=== PATIENT | female | born 1980 | race Caucasian/White ===

== ENCOUNTER 2019-12-03 14:42 | Observation (INO) | payer OTHER, SELFPAY ==
[2019-12-03] VITALS (10 sets, daily range): BP systolic 113–146; BP diastolic 70–101; PULSE 70–109; RESP 17–20; TEMP 36.5–37.1; O2SAT 99–100; BMI 28.4
--- NOTE | ~2019-12-03 | XR_ITS ---
EXAMINATION: XR chest 2V 12/03/2019 15:58 INDICATION: Shortness of breath PROCEDURE: 2 view chest COMPARISON: None FINDINGS: The lungs are clear. The cardiomediastinal silhouette is within normal limits. There are no pleural effusions. There is no pneumothorax suspected. IMPRESSION: 1: NO ACUTE CARDIOPULMONARY DISEASE. Reviewed, dictated and finalized at location A.
--- NOTE | 2019-12-03 15:02 | ECG_ITS ---
Measurements Intervals Lane Rate: 100 P: 70 MI: 160 QRS: 39 QRSD: 85 T: 79 QT: 330 QTc: 426 Interpretive Statements SINUS TACHYCARDIA BORDERLINE ST ABNORMALITY- DIFFUSE LEADS BASELINE WANDER- V2-V3 BORDERLINE ECG Electronically Signed On 12-03-2019 15:09:07 CDT by Jace Jones D.O.
[2019-12-03] MEDS: ASPIRIN 81 MG CHEWABLE TABLET 324 MG PO (15:09)
[2019-12-03 15:17] LABS: Basophils Percent Auto 0.6 % (0.2-1.2); Eosinophils Percent Auto 0.6 % (0-4.4); Hematocrit 36.9 % (37.0-47.0); Hemoglobin 12.4 g/dL (12.0-15.0); Immature Granulocyte Absolute 0.01 K/mm3 (0.00-0.031); Immature Granulocyte Percent A 0.2 % (0-0.5); Lymphocytes Absolute Auto 1.54 K/mm3 (0.9-3.2); Lymphocytes Percent Auto 28.7 % (18.3-44.2); Mean Corpuscular HGB Conc 33.6 g/dl (32-36); Mean Corpuscular Hemoglobin 28.7 pg (26-34); Mean Corpuscular Volume 85.4 fl (80-100); Mean Platelet Volume 9.6 fl (7.4-10.4); Monocytes Absolute Auto 0.5 K/mm3 (0.1-0.6); Monocytes Percent Auto 8.4 % (2.6-8.5); Neutrophils Absolute Auto 3.3 K/mm3 (1.3-6.7); Neutrophils Percent Auto 61.5 % (45.5-73.1); Platelet Count Result 361 k/mm3 (150-375); Red Blood Count 4.32 M/mm3 (4.2-5.4); Red Cell Distribution Width 15.4 % (11.5-14.5); White Blood Count 5.4 K/mm3 (4.5-10.0)
[2019-12-03 15:27] LABS: INR 0.9
[2019-12-03 15:28] LABS: Partial Thromboplastin Time 29.4 SECONDS (22.3-36.8)
[2019-12-03 15:29] LABS: Blood Urea Nitrogen 9 mg/dL (7-17); Calcium 9.4 mg/dL (8.4-10.2); Carbon Dioxide 23 mmol/L (22-30); Chloride 104 mmol/L (98-107); Estimated CRCL calculation 116 ml/min; Estimated Glomerular Filt Rate > 60; Glucose 109 mg/dL (65-105); Potassium 3.6 mmol/L (3.4-5.0); Sodium 134 mmol/L (137-145)
[2019-12-03 15:46] LABS: Troponin I 0.089 ng/mL (0.000-0.034)
[2019-12-03 15:54] LABS: D Dimer 0.27 ug/mL (<0.48)
[2019-12-03 16:02] LABS: Add Urine Microscopic? NO; Appearance Urine Clear (Clear); Bilirubin Urine Negative (Negative); Blood Urine Negative (Negative); Color Urine Yellow (Yellow); Glucose Urine UA Negative (Negative); Ketones Urine Negative (Negative); Leukocyte Esterase Ur Negative LEU/UL (Negative); Nitrate Urine Negative (Negative); Protein Urine Negative (Negative); Specific Grav Ur 1.021 (1.001-1.035); Urobilinogen Urine Negative mg/dL (<2.0)
--- NOTE | 2019-12-03 16:06 | ED.GENADULT ---
HPI - General Adult General Chief complaint: Chest Pain Stated complaint: Cough, SOB Time Seen by Provider: 12/03/19 14:48 History of Present Illness HPI narrative: Patient is a 39 y/o female complaining of sharp and burning chest pain for 2 weeks. She states that her pain is located in mid sternal area and it radiates to her neck/throat. She rates her pain as 8/10. She states that her pain is worse with movement. She has some SOB and cough. She took Ibuprofen which did not help. Related Data Home Medications Medication Instructions Recorded Confirmed No Home Medications 12/03/19 12/03/19 Allergies Allergy/AdvReac Type Severity Reaction Status Date / Time amoxicillin Allergy Hives Verified 12/03/19 14:56 Review of Systems Constitutional: Constitutional: Denies chills, Denies fever(s), Denies headache(s) and Denies weakness Eyes: Eyes: Denies blurry vision ENT: Denies headache(s) and Denies neck pain Cardiovascular: Cardiovascular: Reports chest pain and Reports dyspnea Respiratory: Respiratory: Reports cough and Reports dyspnea Gastrointestinal: Gastrointestinal: Denies abdominal pain, Denies diarrhea, Denies nausea and Denies vomiting Genitourinary: Genitourinary: Denies hematuria and Denies dysuria Musculoskeletal: Musculoskeletal: Denies back pain and Denies neck pain Neurologic: Denies headache(s) and Denies weakness [facility] Family History Family History (Updated 12/03/19 @ 18:53 by Freya Dolan RN) Mother Asthma Cerebrovascular accident Sibling Asthma Father Hypertension Prostate carcinoma Social History Social History Smoking status: Never smoker Alcohol intake: current Drinks per week: 4 Substance use: never Spiritual care concerns: No Exam Const: General: no acute distress and well developed Orientation/consciousness: oriented to person, oriented to place, oriented to time and patient oriented x3 HENMT: Head: normocephalic Ears: external ears normal General nose exam: Normal external nose present Eyes: General: appearance normal, both eyes and all related structures Conjunctivae: conjunctivae normal Neck: Neck: normal visual inspection and full ROM Chest: Chest palpation & inspection: normal inspection of the chest and no tenderness Resp: Effort & Inspection: normal respiratory effort Auscultation: clear to auscultation bilaterally Cardio: Rate: regular rate Rhythm: regular rhythm GI: GI Palp: No abdominal tenderness and Yes Soft to palpation Skin: General skin exam: normal color and turgor normal Neuro: General: oriented to person, oriented to place, oriented to time and patient oriented x3 Cognition (Neuro): normal cognition Extrem: General: normal to inspection, full ROM and no pedal edema Psych: Appearance: grossly normal Mental Status: mental status grossly normal Affect: normal affect Course Consultations Consultation #1: Discussed with Dr. Gupta (cardiology), who agrees to admit. She also recommends giving one dose of Lovenox and ordering Echo. Date: 12/03/19 Time: 17:31 Vital Signs Vital signs: Vital Signs Temperature 37.1 C 12/03/19 14:49 Pulse Rate 106 H 12/03/19 14:49 Respiratory Rate 20 12/03/19 14:49 Blood Pressure 146/101 H 12/03/19 14:49 Pulse Oximetry 100 12/03/19 14:49 Temperature 36.6 C 12/03/19 18:50 Pulse Rate 92 12/03/19 18:50 Respiratory Rate 18 12/03/19 18:50 Blood Pressure 127/78 12/03/19 18:50 Pulse Oximetry 100 12/03/19 18:50 Medical Decision Making Vital Signs Vital Signs: Vital Signs Temperature 37.1 C 12/03/19 14:49 Pulse Rate 106 H 12/03/19 14:49 Respiratory Rate 20 12/03/19 14:49 Blood Pressure 146/101 H 12/03/19 14:49 Pulse Oximetry 100 12/03/19 14:49 Temperature 36.6 C 12/03/19 18:50 Pulse Rate 92 12/03/19 18:50 Respiratory Rate 18 12/03/19 18:50 Blood Pressure 127/78
[2019-12-03 17:30] LABS: NT Pro B Type Natriuretic Pept 122 PG/ML (5-100)
[2019-12-03] MEDS: ENOXAPARIN 80 MG/0.8 ML SYRINGE SUB-Q (17:46)
[2019-12-03 18:16] LABS: Troponin I 0.104 ng/mL (0.000-0.034)
--- NOTE | 2019-12-03 18:36 | PC.NURSE ---
This patient, Temitope Childers, was admitted to IMU Room 213-01. Patient/family oriented to hospital policies and general routines including ID bracelet, bed and alarms, visiting hours, pain management, procedures, bathroom and other care routines, personal items, smoking policy, room service/diet, and visiting hours. Valuables list has been completed. Information on how to activate the Rapid Response Team has been discussed. Patient/Family are encouraged to report perceived risks to care and to ask questions if they do not understand what they are told or what they should do.
--- NOTE | 2019-12-03 19:41 | ECG_ITS ---
Measurements Intervals [place] Rate: 100 P: 59 DC: 152 QRS: 1 QRSD: 90 T: 125 QT: 343 QTc: 444 Interpretive Statements SINUS TACHYCARDIA LEFT ATRIAL ENLARGEMENT RSR' IN V1 OR V2, CONSIDER RIGHT VENTRICULAR HYPERTROPHY OR RIGHT VCD DELAYED PRECORDIAL R/S TRANSITION BORDERLINE ST-T WAVE ABNORMALITY- DIFFUSE LEADS BASELINE ARTIFACT- III, AVL BORDERLINE ECG Electronically Signed On 12-03-2019 20:17:47 CDT by Jace Jones D.O.
[2019-12-03] MEDS: NITROGLYCERIN SL 0.4 MG TABLET SUBLINGUAL ×2 (19:45→19:51)
[2019-12-03 21:36] LABS: Troponin I 0.103 ng/mL (0.000-0.034)
[2019-12-04] VITALS (13 sets, daily range): BP systolic 114–129; BP diastolic 69–91; PULSE 70–125; RESP 13–28; TEMP 36.5–36.6; O2SAT 91–100
--- NOTE | 2019-12-04 | ECHO_ITS ---
Patient Info Name: Temitope Childers Age: 39 years : 1980 Gender: Female Ht: 66 in Wt: 172 lbs BSA: 1.92 m2 HR: 79 bpm BP: 122 / 69 mmHg Heart Rhythm: Sinus Rhythm Technical Quality: Good Exam Date: 12/04/2019 8:52 AM Exam Location: [facility] Pulmonary Patient Status: Inpatient Admit Date: 12/03/2019 Staff Ordering Physician: Briana Chavez MD Clip Riveter: Lio Ibarra RDCS Attending Provider: Lee Ann Gupta DO Referring Physician: Scott KIM; Exam Type: CA echo doppler color flow Study Info Indications R07.9 - Chest pain, unspecified Complete two-dimensional, color flow and Doppler transthoracic echocardiogram is performed. Strain analysis performed. History/Risk Factors Chest pain and SOB w/ cough x2 weeks; trop bump. Summary 1. Normal LV size, mild LVH; normal LV systolic and diastolic function, LVEF 60-65%. Global longitudinal strain -19%. Normal structure of the valves. Trace TR, RVSP 26 mmHg. Increased echogenicity of the pericardium with no significant pericardial effusion. Left Ventricle Left ventricular chamber dimension is normal. Left ventricular systolic function is normal, estimated at 60-65%. There is mildly increased left ventricular wall thickness. Left ventricular septal wall motion is normal. The left ventricular diastolic function is normal. Right Ventricle Right ventricular chamber dimension is normal. Right ventricular systolic function is normal. Left Atria Left atrial chamber dimension is normal. Right Atria Right atrial chamber dimension is normal. Aortic Valve The aortic valve is trileaflet. There is no aortic valve sclerosis. There is no aortic valve stenosis. There is no aortic valve regurgitation. Pulmonic Valve The pulmonic valve is normal. There is trace pulmonic regurgitation. Mitral Valve The mitral valve has normal leaflets. There is no mitral valve stenosis. There is no mitral valve regurgitation. Tricuspid Valve The tricuspid valve leaflets are normal. There is no significant tricuspid valve stenosis. There is trace tricuspid valve regurgitation. No pulmonary hypertension, estimated pulmonary arterial systolic pressure is 26 mmHg. Pericardium/Pleural The pericardium appears increased echogenicity of the pericardium. There is trivial pericardial effusion. Inferior Vena Cava Normal inferior vena cava with >50% collapse upon inspiration consistent with normal right atrial pressure, 5 mmHg. Aorta The aortic root size at the sinus of Valsalva is normal. The prox ascending aorta size is normal. Left Ventricular Outflow Tract Name Value Normal LVOT 2D LVOT Diameter 1.8 cm LVOT Doppler LVOT Peak Gradient 5 mmHg LVOT Mean Gradient 3 mmHg LVOT VTI 22 cm LVOT VTI/AV VTI Ratio 0.9 LVOT Stroke Volume 53 ml LVOT CO 4.0 l/min LVOT CI 2.1 l/min/m2 Mitral Valve
[2019-12-04] MEDS: NITROGLYCERIN OINTMENT 1 INCH DOSE 0.5 INCH TRANSDERM ×2 (00:09→05:26)
[2019-12-04] MEDS: ACETAMINOPHEN 325 MG TABLET 650 MG PO ×2 (04:29→16:17)
--- NOTE | 2019-12-04 08:17 | PM.IMHP ---
H&P: HPI History of Present Illness Chief complaint: chest pain/elevated troponin Narrative: Date of service-12/04/2019 Chief complaint: Chest pain, cough for approximately 2 weeks HPI: Temitope Childers is a 39 year old female with no known prior cardiac history; no previous medical/surgical problems. Patient presented to [facility] on 12/03/2019 with complaints of chest discomfort and cough for approximately 2 weeks. She describes her chest discomfort as sharp/burning sensation in the substernal area, localized and worse with movement. Symptoms have been somewhat persistent were last couple of weeks, associated with cough with scanty expectoration. She also has mild shortness of breath, occasional dizziness without syncope. No palpitations. No PND, orthopnea or lower extremity swelling. Patient does not recall any recent sick contacts. She denies fever or chills. Patient's EKG on admission which I personally evaluated showed sinus tachycardia, heart rate 100 beats per minute, diffuse subtle ST depression. Troponins are minimally elevated with current peak troponin level of 0.103; NT proBNP is in the [place] zone at 1:22 a.m.. UA is unremarkable. Chest x-ray is unremarkable. Review of Systems Constitutional: Constitutional: Denies chills, Denies fatigue, Denies fever(s) and Denies headache(s) Eyes: Eyes: Reports as per HPI, Denies change in vision, Denies loss of vision and Denies eye pain ENT: Reports as per HPI, Reports Normal hearing present, Denies headache(s), Denies lip swelling, Denies epistaxis and Denies sore throat Cardiovascular: Cardiovascular: Reports as per HPI, Reports chest pain, Denies syncope, Denies irregular heart rhythm, Reports lightheadedness and Reports dyspnea Respiratory: Respiratory: Reports as per HPI, Reports cough, Reports dyspnea and Denies wheezing Gastrointestinal: Gastrointestinal: Reports as per HPI, Denies abdominal pain, Denies melena, Denies nausea and Denies vomiting Genitourinary: Genitourinary: Reports as per HPI Musculoskeletal: Musculoskeletal: Reports as per HPI, Denies myalgias, Denies muscle cramps and Denies muscle weakness Integumentary/Breasts: Skin/Breast: Reports as per HPI, Denies pruritus and Denies rash Neurologic: Reports as per HPI, Reports Normal hearing present, Denies behavioral changes, Denies syncope, Denies headache(s) and Denies loss of vision Psychiatric: Psychiatric: Reports as per HPI, Denies anxiety, Denies behavioral changes and Denies depression Endocrine: Endocrine: Reports as per HPI, Denies fatigue, Denies polydipsia and Denies polyuria Hematologic/Lymphatic: Hematologic/Lymphatic: Reports as per HPI, Denies easy bleeding and Denies easy bruising Allergic/Immunologic: Allergic/Immunologic: Reports as per HPI, Denies lip swelling and Denies wheezing [facility] Family History Family History Mother Asthma Cerebrovascular accident Sibling Asthma Father Hypertension Prostate carcinoma Social History Social History Smoking status: Never smoker Alcohol intake: current Drinks per week: 4 Substance use: never Spiritual care concerns: No Meds Home Medications and Allergies Home Medications Medication Instructions Recorded Confirmed Type No Home Medications 12/03/19 12/03/19 History Allergies Allergy/AdvReac Type Severity Reaction Status Date / Time amoxicillin Allergy Hives Verified 12/03/19 14:56 Vital Signs Vital Signs - 24 hr 12/03/19 14:49 12/03/19 15:57 12/03/19 18:48 Temperature 37.1 C Pulse Rate 106 H 98 78 Respiratory Rate 20 17 18 Blood Pressure 146/101 H 133/96 H 134/70 Pulse Oximetry 100 99 99 12/03/19 18:50 12/03/19 19:43 12/03/19 19:51 Temperature 36.6 C 36.6 C Pulse Rate 92 97 Respiratory Rate 18 20 Blood Pressure 127/78 128/77 129/80 Pulse Oximetry 100 100 12/03/19 20:00 12/03/19 21
[2019-12-04 09:10] LABS: D Dimer 0.32 ug/mL (<0.48)
--- NOTE | 2019-12-04 09:30 | PC.NURSE ---
This patient, Temitope Childers, was transferred to ICU 1 to rule out covid on 12/04/19 at 0930. Personal belongings sent with patient. Report given to MANJIT Garcia. Appropriate documentation sent with patient.
[2019-12-04] MEDS: ASPIRIN 81 MG CHEWABLE TABLET PO (09:46)
[2019-12-04] MEDS: ONDANSETRON INJ 4 MG/2 ML VIAL IV PUSH (13:15)
[2019-12-04] MEDS: COLCHICINE 0.6 MG TABLET PO ×2 (16:17→21:25)
[2019-12-04 19:17] LABS: SARS-CoV-2 RNA PCR Negative
--- NOTE | 2019-12-04 23:49 | PC.NURSE ---
This patient, Temitope Childers, was received from [ICU-1 ] on 12/04/19 at 2349. Personal belongings list checked and signed. Patient/family oriented to unit policies and routines
[2019-12-05] VITALS (8 sets, daily range): BP systolic 121–123; BP diastolic 69–76; PULSE 50–115; RESP 16–18; TEMP 36.3–36.6; O2SAT 98–100
--- NOTE | 2019-12-05 00:53 | PC.NURSE ---
This patient, Temitope Childers, was transferred to [[id number] ] on 12/04/19 at 2349 via wheelchair. Personal belongings sent with patient. Belongings list checked and signed with receiving [RN]. Report given to [Meghan SARAVIA ]. Appropriate documentation sent with patient.
[2019-12-05] MEDS: ASPIRIN 81 MG CHEWABLE TABLET PO (09:43)
[2019-12-05] MEDS: COLCHICINE 0.6 MG TABLET PO (09:43)
--- NOTE | 2019-12-05 10:15 | PM.DS ---
DS: Admitting Diagnosis Admitting Diagnosis Admitting Diagnosis: Disease of pericardium, unspecified DS: Discharge Diagnosis Discharge Diagnosis (1) Myopericarditis: Code(s): I31.9 - Disease of pericardium, unspecified Status: Acute Assessment and Plan: 39-year-old female with no known prior medical/surgical history presented with 2 week history of chest pain associated with cough and shortness of breath. Her EKG showed sinus tachycardia, subtle diffuse ST depression. Troponins were minimally elevated. Clinical presentation suggestive of possible myopericarditis. COVID was ruled out D-dimer was negative Echocardiogram as per hospital course Improved with colchicine. Telemetry reveals heart rates in the 65 range at rest increasing up to 122 with exertional activity back and forth to the bathroom. DS: Summary Hospital Course Reason for hospitalization: Chest pain Hospital Course: 39-year-old female presented to the emergency room on 12/03/2019 for evaluation of substernal chest discomfort and cough that she has had for 2 weeks. The chest discomfort was sharp/burning sensation, localized and worse with movement. She had an associated cough and mild shortness of breath. No palpitations. EKG on admission showed sinus tachycardia heart rate [address] depression. Troponin was mildly elevated with a peak of 0.014. Chest x-ray was unremarkable. UA was negative. Echocardiogram 12/04/2019:Normal LV size, mild LVH; normal LV systolic and diastolic function, LVEF 60-65%. Global longitudinal strain -19%. Normal structure of the valves. Trace TR, RVSP 26 mmHg. Increased echogenicity of the pericardium with no significant pericardial effusion. COVID was ruled out. She was started on colchicine 0.6 mg every 12 hours. Symptoms have improved. She no longer has chest discomfort. She does have shortness of breath with exertional activity of moving back and forth to the bathroom but this is improved. Telemetry reveals sinus tachycardia up to 122 beats per minute with activity. Resting heart rates are in the 65 range. She was discharged home in improved condition. Status at Discharge Functional status at discharge: independent ambulation Overall status at discharge: patient is progressing back to baseline Time Spent with Patient Time attestation: Total time spent providing and/or coordinating discharge services: 28 minutes Time spent: Less than 30 minutes Exam Const: General: cooperative, no acute distress, alert and awake Nutritional Appearance: well nourished Orientation/consciousness: patient oriented x3 Limitations: no limitations HENMT: Head: normocephalic and atraumatic Ears: hearing grossly normal bilaterally and external ears normal General nose exam: Normal external nose present and no epistaxis Face and sinus: normal facial exam and no ecchymosis Mouth: Yes tongue normal and Yes moist mucous membranes Teeth and gingiva: dentition normal Eyes: Conjunctivae: conjunctivae normal Sclera: sclerae normal Pupils: Equal, round and reactive pupils present Neck: Neck: normal visual inspection, supple and no JVD Carotids: normal carotid upstroke Resp: Effort & Inspection: normal respiratory effort and able to speak in complete sentences Auscultation: clear to auscultation bilaterally Cardio: Jugular venous distension: no JVD Rate: regular rate Rhythm: regular rhythm Heart sounds: S1 normal heart sound present, S2 normal heart sound present and no murmurs GI: Inspection: normal to inspection GI Palp: Yes Soft to palpation Auscultation: normal bowel sounds Skin: General skin exam: normal color Lesions: no lesions Rashes: no rashes Other: no rash on exposed areas, no cyanosis Neuro: General: patient oriented x3 Cranial nerves: Yes Equal, round and reactive pupils present and Yes Normal hearing present Cognition (Neuro): normal co
== END 2019-12-05 14:10 | disposition home or self-care (01) ==
LOC: ANHED 17:39 → ANHIMU 19:28 → ANHICU 12-06 15:43 → ANHIMU 12-06 15:43
PROVIDERS: Internal Medicine Cardiovascular Disease; Admitting Provider Internal Medicine Cardiovascular Disease; Emergency Provider Emergency Medicine; Visit Provider Internal Medicine Cardiovascular Disease
DX: R07.9 Chest pain, unspecified (principal); Z20.828 Contact with and (suspected) exposure to other viral communicable diseases; R00.0 Tachycardia, unspecified; R79.89 Other specified abnormal findings of blood chemistry; R06.02 Shortness of breath; I31.9 Disease of pericardium, unspecified
CPT/HCPCS: 36415; 71046; 80048; 81003; 81025; 83880; 84484; 85025; 85380; 85610; 85730; 87635; 93005; 93306; 96372; 96374; 99285; A9270; C9803; G0378; G0379; J1650; J2405; U0003

== ENCOUNTER 2019-12-27 09:04 | Outpatient (NON) | payer OTHER, SELFPAY ==
[2019-12-28 02:02] LABS: SARS-CoV-2 RNA PCR Negative
== END 2019-12-27 09:05 ==
PROVIDERS: Visit Provider Internal Medicine Cardiovascular Disease
DX: R06.00 Dyspnea, unspecified (principal); Z20.828 Contact with and (suspected) exposure to other viral communicable diseases
CPT/HCPCS: 87635; C9803; U0003

== ENCOUNTER 2020-06-13 09:51 | Outpatient (CLI) | payer OTHER, SELFPAY ==
[2020-06-13 10:09] LABS: Basophils Percent Auto 0.8 % (0.2-1.2); Eosinophils Percent Auto 0.6 % (0-4.4); Immature Granulocyte Absolute 0.01 K/mm3 (0.00-0.031); Immature Granulocyte Percent A 0.2 % (0-0.5); Lymphocytes Absolute Auto 2.06 K/mm3 (0.9-3.2); Lymphocytes Percent Auto 39.4 % (18.3-44.2); Mean Corpuscular HGB Conc 32.5 g/dl (32-36); Mean Corpuscular Hemoglobin 28.3 pg (26-34); Mean Corpuscular Volume 87.1 fl (80-100); Mean Platelet Volume 9.2 fl (7.4-10.4); Monocytes Absolute Auto 0.5 K/mm3 (0.1-0.6); Monocytes Percent Auto 9.2 % (2.6-8.5); Neutrophils Absolute Auto 2.6 K/mm3 (1.3-6.7); Neutrophils Percent Auto 49.8 % (45.5-73.1); Platelet Count Result 303 k/mm3 (150-375); Red Blood Count 4.59 M/mm3 (4.2-5.4); Red Cell Distribution Width 15.6 % (11.5-14.5); White Blood Count 5.2 K/mm3 (4.5-10.0)
[2020-06-13 10:20] LABS: INR 0.9; Prothrombin Time 13.1 Seconds (11.1-14.7)
[2020-06-13 10:22] LABS: Alanine Aminotransferase 23 U/L (4-35); Albumin Level 4.5 g/dL (3.5-5.1); Alkaline Phosphatase 77 U/L (38-126); Anion Gap 7 mmol/L (8-16); Aspartate Amino Transferase 30 U/L (14-36); Bilirubin,Total 0.7 mg/dL (0.2-1.3); Blood Urea Nitrogen 12 mg/dL (7-17); Calcium 9.2 mg/dL (8.4-10.2); Carbon Dioxide 26 mmol/L (22-30); Chloride 104 mmol/L (98-107); Estimated Glomerular Filt Rate > 60; Glucose 88 mg/dL (65-105); Potassium 4.1 mmol/L (3.4-5.0); Sodium 137 mmol/L (137-145)
== END 2020-06-13 09:52 | disposition home or self-care (01) ==
PROVIDERS: Visit Provider Internal Medicine Cardiovascular Disease
DX: Z01.812 Encounter for preprocedural laboratory examination (principal); I20.8 Other forms of angina pectoris; R06.00 Dyspnea, unspecified
CPT/HCPCS: 36415; 80053; 85025; 85610

== ENCOUNTER 2020-08-13 14:48 | Inpatient (IN) | payer SELFPAY ==
[2020-08-13] VITALS (9 sets, daily range): BP systolic 111–128; BP diastolic 53–77; PULSE 64–89; RESP 16–20; TEMP 35.8–36.4; O2SAT 99–100; BMI 29.0
--- NOTE | 2020-08-13 09:17 | EST_ITS ---
Patient Info Name: Temitope Childers Age: 40 years : 1980 Gender: Female Ht: 66 in Wt: 170 lbs BSA: 1.91 m2 HR: 87 bpm BP: 140 / 86 mmHg Exam Date: 08/13/2020 9:54 AM Exam Location: [facility] Pulmonary Patient Status: Inpatient Admit Date: 08/13/2020 Staff Ordering Physician: Jace Jones DO Special Effects Makeup Artist: Breana Dugan RDCS Attending Provider: Jace Jones DO Exercise Technologist: Shyam Connelly RDCS, RT Exercise Physician: Jace Jones DO Exam Type: CA stress echo Study Info Indications R07.9 - Chest pain, unspecified Treadmill exercise stress echocardiogram is performed. Summary 1. 1. Abnormal Reinaldo exercise stress test for ischemic ST changes by ECG criteria. 2. 2. Test terminated early due to significant ST depressions and chest pains. 3. 3. Abnormal stress echocardiogram for ischemia by wall motion analysis suggesting suggesting stenosis in LAD and LCx distribution. 4. 4. Patient informed of the above results. Stress Echo Findings Left Ventricle Anterior wall is hypokinetic during systole. Lateral wall is hypokinetic during systole. Left Ventricle Normal LV systolic function, no wall motion abnormality. Protocol: Reinaldo Stress ECG Details Stage: REST Duration (min): 2 min : 41 sec Speed (mph): 0.0 Grade (%): 0 HR (bpm): 81 SBP (mmHg): 140 DBP (mmHg): 86 METS: --- Stage: REST Duration (min): 19 min : 27 sec Speed (mph): 0.0 Grade (%): 0 HR (bpm): 96 SBP (mmHg): 140 DBP (mmHg): 86 METS: --- Stage: STAGE 1 Duration (min): 1 min : 0 sec Speed (mph): 1.7 Grade (%): 10 HR (bpm): 132 SBP (mmHg): 140 DBP (mmHg): 86 METS: --- Stage: STAGE 1 Duration (min): 1 min : 20 sec Speed (mph): 1.7 Grade (%): 10 HR (bpm): 143 SBP (mmHg): 140 DBP (mmHg): 86 METS: --- Stage: RECOVERY Duration (min): 0 min : 39 sec Speed (mph): 0.0 Grade (%): 0 HR (bpm): 107 SBP (mmHg): 140 DBP (mmHg): 86 METS: --- Stage: RECOVERY Duration (min): 1 min : 39 sec Speed (mph): 0.0 Grade (%): 0 HR (bpm): 77 SBP (mmHg): 140 DBP (mmHg): 86 METS: --- Stage: RECOVERY Duration (min): 2 min : 39 sec Speed (mph): 0.0 Grade (%): 0 HR (bpm): 76 SBP (mmHg): 140 DBP (mmHg): 86 METS: --- Stage: RECOVERY Duration (min): 3 min : 39 sec Speed (mph): 0.0 Grade (%): 0 HR (bpm): 83 SBP (mmHg): 118 DBP (mmHg): 66 METS: --- Stage: RECOVERY Duration (min): 4 min : 39 sec Speed (mph): 0.0 Grade (%): 0 HR (bpm): 81 SBP (mmHg): 118 DBP (mmHg): 66 METS: --- Stage: RECOVERY Duration (min): 5 min : 39 sec Speed (mph): 0.0 Grade (%): 0 HR (bpm): 83 SBP (mmHg): 125 DBP (mmHg): 76 METS: --- Stage: RECOVERY Duration (min): 6 min : 39 sec Speed (mph): 0.0 Grade (%): 0 HR (bpm): 86 SBP (mmHg): 125 DBP (mmHg): 76 METS: ---
--- NOTE | 2020-08-13 10:51 | ECG_ITS ---
Measurements Intervals [place] Rate: 76 P: 40 [place]: 147 QRS: 1 QRSD: 90 T: 15 QT: 402 QTc: 452 Interpretive Statements SINUS RHYTHM DELAYED PRECORDIAL R/S TRANSITION BORDERLINE ST-T WAVE ABNORMALITY- INF/HIGH LAT LEADS BASELINE ARTIFACT- I, II, III, AVR, AVL, AVF, V1 BORDERLINE ECG Electronically Signed On 08-13-2020 11:56:59 CDT by Jace Jones D.O.
--- NOTE | 2020-08-13 11:46 | ADMGEN ---
This patient, Temitope Childers, was admitted to IMU Room 209-01 at 1035, direct admit from Dr. Edwards office. Patient/family oriented to hospital policies and general routines including ID bracelet, bed and alarms, visiting hours, pain management, procedures, bathroom and other care routines, personal items, smoking policy, room service/diet, and visiting hours. Information on how to activate the Rapid Response Team has been discussed. Patient/Family are encouraged to report perceived risks to care and to ask questions if they do not understand what they are told or what they should do.
--- NOTE | 2020-08-13 11:47 | PM.IMHP ---
H&P: HPI History of Present Illness Date/Time: 08/13/20 11:47 Reason for admit: Markedly abnormal stress echo. 40 yr old woman who I saw for the first time a couple of weeks ago for chest pains had her stress echo this morning that came back markedly abnormal. She has a history anxiety, and myopericarditis in November [address] Coronado. She relocated here about a year ago and does not have a PCP yet. Her chest pains resolved a few minutes into recovery as ST depressions normalized. Reports that for 3 weeks following hospitalization in November 2019 for myopericarditis and on Colchicine her symptoms resolved. However after that it returned. She is still having GOODEN walking just down hallway associated with chest discomfort. She has sob upon lying down. A year ago she can walk several blocks without any problems. Denies orthopnea, PND, edema, palpitations, dizziness. Cardiovascular Procedures Echo/MUGA:: 02/06/20 HCG echo: EF 70%. 12/04/19 Echo: EF 60-65%, trace TR/PI, increased echogenicity of pericardium, trace pericardial effusion. Electrophysiology:: 12/03/19 EKG: Sinus tachycardia at 101 bpm, LAE, RSR', delayed R/S transition, borderline ST-T wave in diffuse leads. Stress Tests:: 08/13/20 Stress echo: [address] depression in II, III, avF, V3-V6 with associated chest pain. Echo portion abnormal with anterior wall and lateral wall hypokinesis. 12/04/19 CXR: Normal. Chief Complaint: Chest pain Review of Systems Review of Systems: All systems reviewed & are unremarkable except as noted in HPI and below Constitutional: Constitutional: Reports as per HPI, Denies chills and Denies fatigue Cardiovascular: Cardiovascular: Reports as per HPI, Reports chest pain, Denies irregular heart rhythm, Denies leg edema and Reports dyspnea on exertion Respiratory: Respiratory: Reports as per HPI and Reports dyspnea on exertion Gastrointestinal: Gastrointestinal: Reports as per HPI and Denies abdominal pain Genitourinary: Genitourinary: Reports as per HPI and Denies dysuria Musculoskeletal: Musculoskeletal: Reports as per HPI Neurologic: Reports as per HPI, Denies dizziness and Denies syncope [facility] Past Medical History Medical History (Updated 08/13/20 @ 11:52 by Jace Jones DO) Angina of effort GOODEN (dyspnea on exertion) History of pericarditis Family History Family History Mother Asthma Cerebrovascular accident Sibling Asthma Father Hypertension Prostate carcinoma Social History Social History Smoking status: Never smoker Alcohol intake: current Drinks per week: 4 Substance use: never Spiritual care concerns: No Meds Home Medications and Allergies Home Medications Medication Instructions Recorded Confirmed Type nitroglycerin 0.4 mg sublingual 0.4 mg SUBLINGUAL Q5M PRN 06/19/20 07/11/20 History tablet sertraline 100 mg tablet 100 mg PO DAILY 06/19/20 07/11/20 History Allergies Allergy/AdvReac Type Severity Reaction Status Date / Time amoxicillin Allergy Hives Verified 07/11/20 14:15 Vital Signs Vital Signs - 24 hr 08/13/20 11:23 08/13/20 11:29 Temperature 97.6 F Pulse Rate 87 Respiratory Rate 16 20 Blood Pressure 122/72 Pulse Oximetry 100 Exam Const: General: cooperative, healthy appearing and comfortable Resp: Auscultation: clear to auscultation bilaterally, no crackles, no rales, no rhonchi and no wheezes Cardio: Jugular venous distension: no JVD Rate: regular rate Rhythm: regular rhythm Heart sounds: no murmurs Peripheral pulses: dorsalis pedis present GI: GI Palp: No abdominal tenderness and Yes Soft to palpation Neuro: General: oriented to person, oriented to place and oriented to time Extrem: Right lower extremity: no edema Left lower extremity: no edema Assessment and Plan Assessment and plan (1) Chest pain: Qualifiers: Chest pain type: u
[2020-08-13 11:58] LABS: Basophils Percent Auto 0.5 % (0.2-1.2); Eosinophils Absolute Auto 0.1 K/mm3 (0-0.3); Eosinophils Percent Auto 0.9 % (0-4.4); Hematocrit 37.3 % (37.0-47.0); Hemoglobin 12.6 g/dL (12.0-15.0); Immature Granulocyte Absolute 0.01 K/mm3 (0.00-0.031); Immature Granulocyte Percent A 0.2 % (0-0.5); Lymphocytes Absolute Auto 1.55 K/mm3 (0.9-3.2); Lymphocytes Percent Auto 26.8 % (18.3-44.2); Mean Corpuscular HGB Conc 33.8 g/dl (32-36); Mean Corpuscular Hemoglobin 29.4 pg (26-34); Mean Corpuscular Volume 87.1 fl (80-100); Mean Platelet Volume 9.2 fl (7.4-10.4); Monocytes Absolute Auto 0.4 K/mm3 (0.1-0.6); Monocytes Percent Auto 7.4 % (2.6-8.5); Neutrophils Absolute Auto 3.7 K/mm3 (1.3-6.7); Neutrophils Percent Auto 64.2 % (45.5-73.1); Platelet Count Result 279 k/mm3 (150-375); Red Blood Count 4.28 M/mm3 (4.2-5.4); Red Cell Distribution Width 14.2 % (11.5-14.5); White Blood Count 5.8 K/mm3 (4.5-10.0)
[2020-08-13 12:12] LABS: Alanine Aminotransferase 17 U/L (4-35); Albumin Level 4.1 g/dL (3.5-5.1); Alkaline Phosphatase 90 U/L (38-126); Anion Gap 6 mmol/L (8-16); Aspartate Amino Transferase 23 U/L (14-36); Bilirubin,Total 0.5 mg/dL (0.2-1.3); Blood Urea Nitrogen 8 mg/dL (7-17); Calcium 9.1 mg/dL (8.4-10.2); Carbon Dioxide 26 mmol/L (22-30); Chloride 106 mmol/L (98-107); Cholesterol 218 mg/dL (0-200); Estimated CRCL calculation 116 ml/min; Estimated Glomerular Filt Rate > 60; Glucose 86 mg/dL (65-105); HDL Direct 94 mg/dL; Potassium 3.7 mmol/L (3.4-5.0); Sodium 138 mmol/L (137-145); Triglycerides 135 mg/dL (<150)
[2020-08-13 12:22] LABS: LDL Cholesterol Direct 98 mg/dL
[2020-08-13] MEDS: ASPIRIN 325 MG ENTERIC TABLET PO (14:20)
[2020-08-13] MEDS: PRAVASTATIN SODIUM 10 MG TABLET PO (21:15)
[2020-08-14] VITALS (17 sets, daily range): BP systolic 110–139; BP diastolic 59–101; PULSE 59–77; RESP 12–18; TEMP 36.4–37.1; O2SAT 98–100
--- NOTE | 2020-08-14 06:59 | PC.NURSE ---
patient is off floor for clinical lab technologist, quality assurance monitor body is on standby
--- NOTE | 2020-08-14 07:07 | WPDHPUPDATE1 ---
History and Physical Update Update Date/Time: 08/14/20 07:07 History and Physical has been reviewed, including an updated exam of the patient. There are NO changes in the patient's condition. Risks, benefits, and alternatives have been discussed and questions answered. Patient agrees to proceed with procedure.
--- NOTE | 2020-08-14 07:08 | WPDMODSED ---
Moderate Sedation Note-Pt Data Patient Data Allergies Allergy/AdvReac Type Severity Reaction Status Date / Time amoxicillin Allergy Intermediate Hives Verified 08/13/20 12:01 Home Medications Medication Instructions Recorded Confirmed Type nitroglycerin 0.4 mg sublingual 0.4 mg SUBLINGUAL Q5M PRN 06/19/20 08/13/20 History tablet sertraline 100 mg tablet 100 mg PO DAILY 06/19/20 08/13/20 History Current Medications: Active Medications Nitroglycerin (Nitroglycerin Sl 0.4 Mg Tablet) 0.4 mg SUBLINGUAL Q5M PRN PRN Reason: Chest Pain Pravastatin Sodium (Pravastatin Sodium 10 Mg Tablet) 10 mg PO DAILY [facility] Last Admin: 08/13/20 21:15 Dose: 10 mg Documented by: Sertraline HCl (Sertraline Hcl 50 Mg Tablet) 100 mg PO DAILY [facility] Sedation/Anesthesia: No previous sedation/anesthesia problems (including family history). [facility] Past Medical History Medical History (Updated 08/13/20 @ 11:52 by Jace Jones DO) Angina of effort GOODEN (dyspnea on exertion) History of pericarditis Family History Family History Mother Asthma Cerebrovascular accident Sibling Asthma Father Hypertension Prostate carcinoma Social History Social History Smoking status: Never smoker Alcohol intake: current Drinks per week: 7 Substance use: never Spiritual care concerns: No Mod Sed Physical Exam Physical Exam Pre Procedural Exam: Normal: Appearance, Eyes, Ears, Nose, Neck, Throat, Airway, Lungs, Heart Size, Heart Rate, Heart Rhythm, Neuro Exam, Abdomen, Liver, Kidneys, Spleen, Breasts, Genitalia, Extremities and Skin Hours since solid foods: 8 Hours since liquid intake: 8 Internal Medicine - PN: Obj Da Vital Signs Vital Signs: Vital Signs - 24 hr 08/13/20 10:50 08/13/20 11:23 08/13/20 11:29 Temperature 36.4 C Pulse Rate 84 87 Respiratory Rate 16 20 Blood Pressure 122/72 Pulse Oximetry 100 08/13/20 14:00 08/13/20 16:00 08/13/20 18:00 Temperature 36.1 C L Pulse Rate 88 77 88 Respiratory Rate 16 Blood Pressure 128/77 Pulse Oximetry 100 08/13/20 20:00 08/13/20 22:00 08/13/20 23:33 Temperature 36.1 C L 35.8 C L Pulse Rate 89 83 64 Respiratory Rate 18 18 Blood Pressure 111/67 123/53 L Pulse Oximetry 100 99 08/14/20 00:00 08/14/20 02:00 08/14/20 04:00 Temperature 36.9 C Pulse Rate 76 72 76 Respiratory Rate 18 18 Blood Pressure 110/59 L Pulse Oximetry 99 100 08/14/20 06:00 Temperature Pulse Rate 70 Respiratory Rate Blood Pressure Pulse Oximetry Intake/Output Intake/Output: Intake & Output 08/11/20 08/12/20 08/13/20 08/14/20 23:59 23:59 23:59 23:59 Intake Total 1790 Output Total 850 300 Balance 940 -300 Meds/Results Medications: Active Medications Generic Name Dose Route Start Last Admin Trade Name Freq PRN Reason Stop Dose Admin Nitroglycerin 0.4 mg 08/13/20 11:45 Nitroglycerin Sl 0.4 Mg Tablet SUBLINGUAL Q5M PRN Chest Pain Pravastatin Sodium 10 mg 08/13/20 20:30 08/13/20 21:15 Pravastatin Sodium 10 Mg Tablet PO 10 mg DAILY [facility] Administration Sertraline HCl 100 mg 08/14/20 09:00 Sertraline Hcl 50 Mg Tablet PO DAILY [facility] Labs CBC & Chem 7: 08/13/20 11:12 08/13/20 11:12 Labs: Laboratory Results - last 24 hr 08/13/20 08/13/20 11:12 11:12 WBC 5.8 RBC 4.28 Hgb 12.6 Hct 37.3 MCV 87.1 MCH 29.4 MCHC 33.8 RDW 14.2 Plt Count 279 MPV 9.2 Immature Gran % (Auto) 0.2 Neut % (Auto) 64.2 Lymph % (Auto) 26.8 Barry % (Auto) 7.4 Eos % (Auto) 0.9 Baso % (Auto) 0.5 Lymph # (Auto) 1.55 Barry # (Auto) 0.4 Eos # (Auto) 0.1 Baso # (Auto) 0.0 Abs Immat Gran (auto) 0.01 Absolute Neuts (auto) 3.7 Absolute Nucleated RBC 0.0 Nucleated RBC % 0.0 Sodium 138 Potassium 3.7 Chloride 106 Carbon Dioxide
--- NOTE | 2020-08-14 07:08 | P.PCNCC_ITS ---
Cardiac Cath Procedure Note Date of procedure:: 08/14/20 Performing physician:: Faustino Mcpherson MD date of service 08/14/2020- Indication:: abnormal stress test Brief clinical history:: this is a 40-year-old female with past medical history of myopericarditis November 2019. apparently she was experiencing intermittent chest pain underwent stress test that shows ST depressions and wall motion abnormalities involving and the left circumflex artery territory. She is here to define coronary artery. Procedure Procedure performed:: 1-Moderate sedation that started at 7:20 am and ended at 755 am using4 mg of Versed and 75mcg fentanyl. The registered nurse was demetrice cespedes. 2-Selective left and right coronary angiogram. 3-Left heart catheterization with measurement of LVEDP and measurement of gradient across aortic valve. 4-Right common femoral arterial angiogram. 5-Insertion of intra-aortic balloon pump. Sedation/Medication given:: Moderate sedation. Access site:: Right common femoral artery. Estimated blood loss:: 10cc Procedure note:: After informed consent patient was brought in to laborer construction or leak gang with the was draped and prepped in usual manner. Moderate sedation was given and the right groin was infiltrated using 1% lidocaine. Five [place] sheath was obtained using micropuncture needle and the modified Seldinger technique. Selective left coronary angiogram was done using JL4 catheter with the tip of the catheter placed in the left main coronary artery. Selective right coronary angiogram was done using JR4 catheter with the tip of the catheter placed to the right coronary artery. After that 5 [place] pigtail catheter was advanced across the aortic valve into the left ventricle with measurement of LVEDP and measurement of gradient across aortic valve. LV angiogram was done as well. Right common femoral arterial angiogram was done. After that insertion of intra-aortic balloon pump through the right groin was done as well. Patient was given 5000 units of heparin on the table. Patient was given aspirin 81 mg also on the table. Findings:: 1- left coronary artery is a large artery that divides into large LAD, large circumflex artery and large ramus. Ostial Left main has 99% stenosis. Intracoronary nitroglycerin 200 mcg was given and repeat angiogram confirms significant ostial left main disease. 2- left anterior descending artery is a large artery that runs to the apex. It is free of disease. Proximally large diagonal 1 branch that is free of disease. 3- left circumflex artery is a large artery And free of disease. Large OM1 free of disease. 4- right coronary artery is Large artery and dominant. There was catheter- induced spasm proximally that resolved with intra coronary nitroglycerin. 5- LVEDP was 10 mm Hg and no gradient across aortic valve. 6- LV angiogram shows normal LV systolic function with estimated ejection fraction 70%. 6- opening arterial pressure 136/80 and closing pressure was 120/80 7- right femoral artery angiogram shows no significant disease in the right common femoral artery. Conclusion:: Critical stenosis involving ostial left main coronary artery that did not resolve with intracoronary nitroglycerin. Assessment and Plan Additional Plan 1-Patient will be transferred to [facility] for consideration for ostial left main stenting versus CABG. I spoke to who agrees to accept the patient and evaluate. 2- continue hemodynamic support with intra-aortic balloon pump. 3- continue IV heparin and aspirin 81 mg daily. 4- currently patient does have her menstrual period And would observe for any increasing bleeding. Monitor CBC.
--- NOTE | 2020-08-14 08:40 | PC.NURSE ---
Patient received from electroplating laborer via bed. Beside report received from MANJIT Epstein. Balloon pump in place.
[2020-08-14] MEDS: SODIUM CHLORIDE 0.9% IV 1,000 ML 75 ML IV CONT (09:22)
[2020-08-14 09:55] LABS: Basophils Percent Auto 0.4 % (0.2-1.2); Eosinophils Absolute Auto 0.1 K/mm3 (0-0.3); Eosinophils Percent Auto 1.3 % (0-4.4); Hematocrit 34.6 % (37.0-47.0); Hemoglobin 11.7 g/dL (12.0-15.0); Immature Granulocyte Absolute 0.01 K/mm3 (0.00-0.031); Immature Granulocyte Percent A 0.2 % (0-0.5); Lymphocytes Percent Auto 44.5 % (18.3-44.2); Mean Corpuscular HGB Conc 33.8 g/dl (32-36); Mean Corpuscular Hemoglobin 29.3 pg (26-34); Mean Corpuscular Volume 86.7 fl (80-100); Mean Platelet Volume 9.3 fl (7.4-10.4); Monocytes Absolute Auto 0.4 K/mm3 (0.1-0.6); Monocytes Percent Auto 7.4 % (2.6-8.5); Neutrophils Absolute Auto 2.2 K/mm3 (1.3-6.7); Neutrophils Percent Auto 46.2 % (45.5-73.1); Platelet Count Result 264 k/mm3 (150-375); Red Blood Count 3.99 M/mm3 (4.2-5.4); Red Cell Distribution Width 14.1 % (11.5-14.5); White Blood Count 4.7 K/mm3 (4.5-10.0)
[2020-08-14 10:04] LABS: Prothrombin Time 13.6 Seconds (11.1-14.7)
[2020-08-14 10:06] LABS: Partial Thromboplastin Time 112.8 SECONDS (22.3-36.8)
[2020-08-14] MEDS: HEPARIN SOD/D5W 100 UNITS/ML 25,000 UNITS/250 ML BAG 8 UNITS IV CONT (10:17)
--- NOTE | 2020-08-14 10:42 | PM.TDS ---
Transfer Discharge Sum: Prov Provider Date of admission: 08/13/20 10:18 Primary care physician: ROLLER PAINTER PHYSICIAN Admitting clinician: Jace Jones DO Consults: 08/13/20 Consult to Physician Routine Comment: Consulting Provider: Justin Carrasco/Dr. Cristina (interventional) rn call center/MD group to consult: HCG Reason for consultation: left heart cath Has provider been notified: Yes 08/14/20 Consult to Physician Routine Comment: Consulting Provider: Nicholas Urban Reason for consultation: balloon pump Has provider been notified: Yes DS: Admitting Diagnosis Admitting Diagnosis Admitting Diagnosis: Chest pain and abnormal stress echo. DS: Discharge Diagnosis Discharge Diagnosis (1) CAD (coronary artery disease): Code(s): I25.10 - Atherosclerotic heart disease of [place] coronary artery without angina pectoris Status: Acute Transfer Discharge Sum: Med Medications Active and Home Medications: Home Medications nitroglycerin 0.4 mg sublingual tablet 0.4 mg SUBLINGUAL Q5M PRN 06/19/20 [History Confirmed 08/13/20] sertraline 100 mg tablet 100 mg PO DAILY 06/19/20 [History Confirmed 08/13/20] Active Medications Heparin Sodium (Porcine) (Heparin Sodium 5,000 Units/Ml Vial) 4,000 units IV PUSH PRN PRN PRN Reason: aPTT less than 55 seconds Heparin Sodium (Porcine) (Heparin Sodium 5,000 Units/Ml Vial) 2,500 units IV PUSH PRN PRN PRN Reason: aPTT 55 - 70 seconds Sodium Chloride (Normal Saline Iv) 1,000 mls @ 75 mls/hr IV CONT .[id number] ONE Stop: 08/14/20 22:24 Last Admin: 08/14/20 09:22 Dose: 75 mls/hr Documented by: Heparin Sodium/Dextrose (Heparin Sodium/D5w 100 Units/Ml) 25,000 units in 250 mls @ 8 mls/hr IV CONT .Q24H [facility]; Protocol Last Admin: 08/14/20 10:17 Dose: 800 units/hr, 8 mls/hr Documented by: Nitroglycerin (Nitroglycerin Sl 0.4 Mg Tablet) 0.4 mg SUBLINGUAL Q5M PRN PRN Reason: Chest Pain Ondansetron HCl (Ondansetron Hcl Odt 4 Mg Tablet) 4 mg PO Q4-6H PRN PRN Reason: Nausea Stop: 08/15/20 09:06 Pravastatin Sodium (Pravastatin Sodium 10 Mg Tablet) 10 mg PO DAILY [facility] Last Admin: 08/13/20 21:15 Dose: 10 mg Documented by: Sertraline HCl (Sertraline Hcl 50 Mg Tablet) 100 mg PO DAILY [facility] Transfer Discharge Sum: Hosp Hospital Course Hospital course: Temitope Childers is a 40 year old female 40 yr old woman who I saw for the first time a couple of weeks ago for chest pains had her stress echo yesterday on 08/13/20 that came back markedly abnormal. She has a history anxiety, and myopericarditis in November [address] Coronado. She relocated here about a year ago and does not have a PCP yet. Her chest pains resolved a few minutes into recovery as ST depressions normalized. LHC this morning with Dr. Cristina showed high grade LM ostial stenosis. She has IABP in place. Heparin drip. She is being transferred to [facility] for high risk LM PCI or CABG surgery. Accepting market development trainer is Dr. Penny. Awaiting bed availability. Reports that for 3 weeks following hospitalization in November 2019 for myopericarditis and on Colchicine her symptoms resolved. However after that it returned. She is still having GOODEN walking just down hallway associated with chest discomfort. She has sob upon lying down. A year ago she can walk several blocks without any problems. Denies orthopnea, PND, edema, palpitations, dizziness. Cardiovascular Procedures Echo/MUGA:: 02/06/20 HCG echo: EF 70%. 12/04/19 Echo: EF 60-65%, trace TR/PI, increased echogenicity of pericardium, trace pericardial effusion. Electrophysiology:: 12/03/19 EKG: Sinus tachycardia at 101 bpm, LAE, RSR', delayed R/S transition, borderline ST-T wave in diffuse leads. Stress Tests:: 08/13/20 Stress echo: [address] depression in II, III, avF, V3-V6 with associated chest pain. Echo portion abnormal with anterior wall and lateral wall hypokinesis. 12/04/19 CXR: Normal. Chief Complaint: Chest pain Time Spent with Patient Time attestation: Total time
--- NOTE | 2020-08-14 10:52 | WPDCNINT ---
Assessment and Plan Assessment and plan (1) CAD (coronary artery disease): Code(s): I25.10 - Atherosclerotic heart disease of [place] coronary artery without angina pectoris Status: Acute Assessment and Plan: Patient had an abnormal stress echo on 08/13/2020 as she was complaining of chest pains for over 2 weeks. -patient had a cardiac catheterization on 08/14/2020 which showed 99% ostial stenosis of left main. Intra-aortic balloon pump was inserted, patient be transferred to [facility] for possible loss to left main stenting versus CABG -patient has been started on systemic heparin per Cardiology -on aspirin, statin (2) Abnormal stress echo: Code(s): R94.39 - Abnormal result of other cardiovascular function study Status: Acute Assessment and Plan: As above Additional Plan Discussed with patient and her mother at bedside and updated with patient's condition plan of care. They are aware that she will be transferring to [facility] for further management Code status: Full code Critical care time spent: 39 minutes This dictation may have been done utilizing a voice recognition system. Attempts have been made to correct errors. However, there may be uncorrected grammatical, spelling, and recognition errors present. Due to a high probability of clinically significant, life threatening deterioration, the patient required my highest level of preparedness to intervene emergently and I personally spent this critical care time directly and personally managing the patient. This critical care time included obtaining a history; examining the patient; pulse oximetry; ordering and review of studies; arranging urgent treatment with development of a management plan; evaluation of patient's response to treatment; frequent reassessment; and discussions with other providers. It was exclusive of separately billable procedures and treating other patients and teaching time. Please see Assessment and Plan section and the rest of the note for further information on patient assessment and treatment Procedure Rn Consult Note Consult date: 08/14/20 Time Seen: 08:44 Reason for consult: Abnormal stress test status post cardiac catheterization with 99% care occlusion of left main, balloon pump in place HPI: Temitope Childers is a 40 year old female presented with no significant past medical history had an abnormal stress echo on 08/13/2020. Patient has been having chest pain for last couple of weeks patient had a cardiac catheterization today on 08/14/2020 and was found to have 99% occlusion of the left main patient was given intracoronary nitroglycerin during the catheterization. Intra-aortic balloon pump was inserted and patient transferred to the ICU as she will be transferred to [facility] consideration for left main stenting versus CABG. Patient seen examined the ICU, planes of back pain. Has been started on systemic heparin due to tight diet left main lesion after discussion with the chief internal auditor. Patient is otherwise alert, awake, oriented x3, nonfocal. Denies any chest pain, shortness of breath, nausea, vomiting. Patient is hemodynamically stable. Balloon pump in place Review of Systems Review of Systems: All systems reviewed & are unremarkable except as noted in HPI and below PMFSH Past Medical History Medical History (Updated 08/14/20 @ 10:46 by Jace Jones DO) Angina of effort GOODEN (dyspnea on exertion) History of pericarditis Family History Family History Mother Asthma Cerebrovascular accident Sibling Asthma Father Hypertension Prostate carcinoma Social History Social History Smoking status: Never smoker Alcohol intake: current Drinks per week: 7 Substance use: never Spiritual care concerns: No Meds Home Medications and Allergies Home Medications
[2020-08-14] MEDS: PRAVASTATIN SODIUM 10 MG TABLET PO (11:31)
[2020-08-14] MEDS: SERTRALINE HCL 50 MG TABLET 100 MG PO (11:31)
[2020-08-14] MEDS: MORPHINE SULFATE (*CRX) 2 MG/ML INJ 1 MG IV PUSH ×2 (12:38→13:32)
[2020-08-14 17:02] LABS: SARS-CoV-2 RNA PCR Negative
== END 2020-08-14 14:07 | disposition short-term general hospital (02) | DRG 191 ==
LOC: ANHICU 08-19 07:41 → ANHIMU 08-19 07:41
PROVIDERS: Internal Medicine; Internal Medicine Cardiovascular Disease; Admitting Provider Internal Medicine Cardiovascular Disease; Visit Provider Internal Medicine Cardiovascular Disease
PROC: 4A023N7 Measurement of Cardiac Sampling and Pressure, Left Heart, Percutaneous Approach (ICD-10-PCS; CPT 93452; principal; 2020-08-14 07:00)
PROC: 4A023N7 Measurement of Cardiac Sampling and Pressure, Left Heart, Percutaneous Approach (ICD-10-PCS; 2020-08-14 07:00)
DX: I25.10 Atherosclerotic heart disease of native coronary artery without angina pectoris (principal); R94.39 Abnormal result of other cardiovascular function study; Z20.822 Contact with and (suspected) exposure to COVID-19; Z79.899 Other long term (current) drug therapy
CPT/HCPCS: 33967; 36415; 80053; 80061; 85025; 85610; 85730; 87086; 93005; 93351; 93458; A9270; C1887; C1894; C9803; J0131; J1644; J2250; J2270; J3010; J7030; J7040; U0003; U0005

== ENCOUNTER 2020-08-22 14:47 | Outpatient (CLI) | payer SELFPAY ==
--- NOTE | ~2020-08-22 | US_ITS ---
US arterial duplex LE RT 08/22/2020 15:23 Indication: Right groin pain Procedure: High-resolution arterial duplex examination of the right groin Comparison: No prior studies for comparison. Findings: There is normal flow in the right common femoral, superficial femoral and profundus femoral arteries as well as the common femoral and superficial femoral veins. No evidence for signal aneurys m. There is a normal small lymph node in the region of the palpable abnormality. Impression: 1: Normal Doppler and duplex examination of the right coronary vascular structures without evidence f or a pseudoaneurysm. 2: Normal appearing 9 mm lymph node corresponds to the area of palpable concern. Reviewed, dictated and finalized at location B. Impression: 1: Normal Doppler and duplex examination of the right coronary vascular structu res without evidence for a pseudoaneurysm. 2: Normal appearing 9 mm lymph node corresponds to the area of palpable concern .
== END 2020-08-22 14:48 | disposition home or self-care (01) ==
PROVIDERS: Visit Provider Nurse Practitioner Adult Health
DX: I25.10 Atherosclerotic heart disease of native coronary artery without angina pectoris (principal); M54.5 Low back pain; G89.18 Other acute postprocedural pain
CPT/HCPCS: 93926